=== PATIENT | female | born 1980 | race Caucasian/White ===

== ENCOUNTER 2022-08-27 15:56 | Emergency (ER) | payer OTHER ==
[~2022-08-27] VITALS: Ht 165.1 cm; Wt 122.5 kg
[2022-08-27] MEDS ORDERED: DIPH,PERTUSS(ACELL),TET VAC/PF 0.5 ML VIAL IM ONE (16:30)
[2022-08-27] MEDS ORDERED: TETANUS/DIPHTHERIA TOXOID [ADULT] 0.5 ML VIAL IM ONE (17:00)
[2022-08-27] MEDS ORDERED: KETOROLAC 60 MG VIAL (30MG/ML) IM ONE (18:00)
[2022-08-27] MEDS ORDERED: ORPHENADRINE CITRATE 30 MG/ML ML IM ONE (18:00)
[2022-08-27] MEDS ORDERED: IBUP-2070 PO (18:02)
[2022-08-27] MEDS ORDERED: CYCL10TA16 PO (18:02)
[2022-08-27 18:10] VITALS: BP 126/72
== END 2022-08-27 18:18 | disposition home or self-care (01) ==
LOC: EDH 16:00
DX: S91.311A Laceration without foreign body, right foot, initial encounter (principal); S00.03XA Contusion of scalp, initial encounter; S80.811A Abrasion, right lower leg, initial encounter; S89.91XA Unspecified injury of right lower leg, initial encounter; E05.90 Thyrotoxicosis, unspecified without thyrotoxic crisis or storm; V49.59XA Passenger injured in collision with other motor vehicles in traffic accident, initial encounter; Y93.89 Activity, other specified; Y92.413 State road as the place of occurrence of the external cause; Y99.8 Other external cause status
CPT/HCPCS: 99285; 29505; 81025; 90714; 73562; 90471; 96372 ×2; J1885; J2360; 90715